=== PATIENT | female | born 2000 | race Two or more races ===

== ENCOUNTER 2023-08-05 13:47 | Emergency (ER) | payer OTHER ==
[~2023-08-05] VITALS: Ht 149.9 cm; Wt 68.2 kg
[2023-08-05 13:49] VITALS: TEMP 98.5
[2023-08-05 15:30] VITALS: BP 124/71; PULSE 71; RESP 17
== END 2023-08-05 16:14 | disposition home or self-care (01) ==
LOC: EMS 13:48
DX: S61.210A Laceration without foreign body of right index finger without damage to nail, initial encounter (principal); Z91.018 Allergy to other foods; W26.8XXA Contact with other sharp object(s), not elsewhere classified, initial encounter; Y93.89 Activity, other specified; Y92.89 Other specified places as the place of occurrence of the external cause; Y99.8 Other external cause status
CPT/HCPCS: 12002; 99282; Z7502